=== PATIENT | female | born 1995 | race African-American/Black ===

== ENCOUNTER 2018-09-15 13:57 | Emergency (ER) | payer SELFPAY ==
[2018-09-15] MEDS ORDERED: Lorazepam 1 MG TAB ONE (14:37)
== END 2018-09-15 15:06 | disposition home or self-care (01) ==
LOC: MADERS 13:57
DX: F41.9 Anxiety disorder, unspecified (principal)
CPT/HCPCS: 93005

== ENCOUNTER 2021-04-10 15:40 | Emergency (ER) | payer BC | END 2021-04-10 16:49 | disposition home or self-care (01) | LOC: MADERS 15:40 | DX: J02.9 Acute pharyngitis, unspecified (principal) | CPT/HCPCS: 87081; 87430; 99283 ==

== ENCOUNTER 2021-06-07 18:30 | Emergency (ER) | payer BC ==
[2021-06-07] MEDS ORDERED: predniSONE 20 MG TAB ONE ×2 (18:53)
[2021-06-07] MEDS ORDERED: Ibuprofen 800 MG TAB ONE (19:36)
== END 2021-06-07 20:34 | disposition home or self-care (01) ==
LOC: MADERS 18:30
DX: J20.9 Acute bronchitis, unspecified (principal)
CPT/HCPCS: 71046; 93005; 94760; J7512; J7620

== ENCOUNTER 2021-11-24 07:28 | Emergency (ER) | payer BC ==
[2021-11-24] MEDS ORDERED: [UNRECOGNIZED DRUG - OTHER] ONE ×2 (08:33→08:52)
== END 2021-11-24 09:45 | disposition home or self-care (01) ==
LOC: MADERS 07:28
DX: T15.12XA Foreign body in conjunctival sac, left eye, initial encounter (principal)
CPT/HCPCS: 99283

== ENCOUNTER 2022-05-02 13:34 | Emergency (ER) | payer BC ==
[2022-05-02] MEDS ORDERED: Albuterol 2.5 MG/0.5 ML NEB ONE (13:51)
[2022-05-02] MEDS ORDERED: Lactated Ringer's 1,000 ML ONE (13:51)
[2022-05-02 14:21] LABS: BHCG - Serum Negative (NEGATIVE); Pregs Control Background? CLEAR/WHITE (CLR/WHITE); Pregs Control Bar Appear? YES (CONTROL BAR)
[2022-05-02] MEDS ORDERED: Albuterol 200 PUFF (6.7GM INHALER) ONE (14:21)
[2022-05-02 14:30] LABS: #Basophils 0.2 thou/uL (0.0-0.2); #Eosinphils 0.2 thou/uL (0.0-0.7); #Monocytes 0.7 thou/uL (0.11-0.59); #Neutrophils 4.2 thou/uL (1.40-6.50); %Basophils 1.8 % (0.0-1.0); %Eosinophils 2.5 % (0.0-10.0); %Neutrophils 45.7 % (42.0-75.0); ALT (SGPT) 57 U/L (8-55); AST (SGOT) 42 U/L (5-34); Albumin 3.6 g/dL (3.5-5.0); Alkaline Phosphatase 83 U/L (40-110); Anion Gap 15 mmol/L (10-20); BUN (Urea Nitrogen) 13 mg/dL (7.0-18.7); Bilirubin, Total 0.2 mg/dL (0.2-1.2); Calc. Creatinine Clearance 0 mL/min (70-130); Calcium 8.5 mg/dL (7.8-10.44); Carbon Dioxide 22 mmol/L (22-29); Chloride 106 mmol/L (98-107); Estimated GFR 106; Globulin 3.2 g/dL (2.4-3.5); Glucose 136 mg/dL (70-105); Hemoglobin 12.9 g/dL (12.0-16.0); Mean Corpuscular HGB CONC 36.3 g/dL (32.0-36.0); Mean Corpuscular Hemoglobin 30.5 pg (27.0-31.0); Mean Corpuscular Volume 84.2 fl (78.0-98.0); Mean Platelet Volume 7.5 fL (7.4-10.4); Platelet Count 304 10x3/uL (130-400); Potassium 3.6 mmol/L (3.5-5.1); Protein, Total 6.8 g/dL (6.0-8.3); RBC Distribution Width 9.1 % (11.5-14.5); Red Blood Cell (RBC) Count 4.21 mill/uL (4.20-5.40); Sodium 139 mmol/L (136-145); White Blood Cell (WBC) Count 9.3 10x3/uL (4.8-10.8)
[2022-05-02] MEDS ORDERED: Ketorolac Tromethamine 30 MG/ML VIAL ONE (14:47)
== END 2022-05-02 14:54 | disposition home or self-care (01) ==
LOC: MADERS 13:34
DX: J45.909 Unspecified asthma, uncomplicated (principal); R74.01 Elevation of levels of liver transaminase levels; F17.210 Nicotine dependence, cigarettes, uncomplicated
CPT/HCPCS: 71045; 80053; 84484; 84703; 85025; 93005; 94760; 96374; J1885; J7120; J7611

== ENCOUNTER 2022-06-07 00:31 | Emergency (ER) | payer BC ==
[2022-06-07] MEDS ORDERED: Morphine 4 MG/ML VIAL ONE (01:34)
== END 2022-06-07 02:06 | disposition home or self-care (01) ==
LOC: MADERS 00:31
DX: M25.532 Pain in left wrist (principal); Z87.891 Personal history of nicotine dependence
CPT/HCPCS: 96372; 99283; J2270

== ENCOUNTER 2022-06-17 05:01 | Emergency (ER) | payer BC, SELFPAY ==
[2022-06-17] MEDS ORDERED: Ipratropium/Albuterol 3 ML NEB ONE ×2 (05:10→05:41)
[2022-06-17] MEDS ORDERED: predniSONE 10 MG TAB ONE (05:41)
[2022-06-17] MEDS ORDERED: predniSONE 20 MG TAB ONE (05:41)
== END 2022-06-17 06:11 | disposition home or self-care (01) ==
LOC: MADERS 05:01
DX: J45.901 Unspecified asthma with (acute) exacerbation (principal); Z87.891 Personal history of nicotine dependence
CPT/HCPCS: 71045; J7512; J7620